=== PATIENT | female | born 1975 | race Two or more races ===

== ENCOUNTER 2017-07-12 19:41 | Inpatient (IN) | payer MEDICAID ==
--- NOTE | 2017-07-12 20:01 | ED Physician Chart ---
ED Chief Complaint/HPI - Patient Information Date Seen:: 07/12/17 Time Seen:: 19:45 Chief Complaint:: abdominal discomfort History of Present Illness:: location: abdomen quality: abdominal discomfort severity: moderate duration: about 3 days. pt with severe mental retardation from , blindness , livese at assisted. RN who is caregiver reports pt with occasional cough, increasing abdominal distension, large bolus type very foul smelling stools, no vomiting, no fever, pt cannot report if she is having chest pain. pt is seen to have some facial grimacing. care provder says some of this is normal. reason for coming to ER is above complaints have not improved in last 3 days and pt cannot communicate discomfort to providers. mod factors: none assoc s/s: none hx from care provider Historian:: Other (care provider) Review:: Nurse's Note Reviewed ED Review of Systems - Review of Systems General/Constitutional: No fever, No loss of appetite (pt is still taking PO's today. no vomiting today but abdomen is becoming increasingly more distended ) Skin: No rash ENT: No nasal drainage Neck: No stiffness Cardio Vascular: No edema Pulmonary: Cough (occasional cough non productive) GI: No vomiting, No diarrhea G/U: No hematuria Marble Machine Operator: No vaginal discharge Allergic/Immuno: No angioedema Neurological: No seizure (ROS from care provider) ED Past Medical History - Past Medical History Past Medical History: Other (severe mental retardation, ) Family History: None Social History: Non Smoker, No Alcohol, No Drug Use, Single, Care Facility Surgical History: other (back surgery for scoliosis) Psychiatricy History: Other (anxiety) Medication: Reviewed Family Medical History - Family Member Mother History Unknown: Yes ED Physical Exam - Physical Examination General/Constitutional: Awake, Well-developed, well-nourished, Alert (pt is alert but has facial grimace and turns head to left and right. care provider says that some of this is WNL but thinks it is more increased iin last 3 days and with increasing abdominal distension wonders of underlying disease. pt has been with this care provider for 10 years. ) Head: Atraumatic Eyes: Lids, conjuctiva normal, PERRL, EOMI Skin: Nl inspection, No rash, No skin lesions, No ecchymosis, Well hydrated, No lymphadenopathy ENMT: External ears, nose nl Neck: Nontender Respiratory: Nl effort/Exclusion (upper lung benson clear,lower lung benson with scant crackles bilaterally) Cardio Vascular: RRR, No murmur, gallop, rubs, NL S1 S2 GI: No tenderness/rebounding/guarding (abdominal fullness with mildly hypoactive bowel sounds all quadrants. no rebound, difficult to determine tenderness as patient is not responsive to typical stimuli. pt is with facial grimace during exam. ) : No CVA tenderness Extremities: No tenderness or effusion, normal strength in all extremities ( some contractures all limbs) Neuro/Psych: Alert/oriented (pt appears awake, but eyes are closed. pt is blind since ) Misc: Normal back (scoliosis of spine) ED Labs/Radiology/EKG Results - Lab Results Results: Laboratory Tests 07/12/17 07/12/17 07/12/17 20:28 20:28 20:35 WBC 9.2 RBC 4.62 Hgb 14.1 Hct 41.4 MCV 89.7 MCH 30.5 MCHC Differential 33.9 RDW 11.9 Plt Count 308 MPV 7.7 Neutrophils % 65.8 Lymphocytes % 20.8 Monocytes % 10.9 H Eosinophils % 2.2 Basophils % 0.3 Sodium 135 L Potassium 3.5 Chloride 104 Carbon Dioxide 23.2 Anion Gap 11.3 BUN 7 Creatinine 0.9 Est GFR ( Amer) > 60.0 Est GFR (Non-Af Amer) > 60.0 BUN/Creatinine Ratio 7.8 Glucose 126 H Calcium 9.4 Total Bilirubin 0.5 AST 15 ALT 17 Alkaline Phosphatase 93 Total Protein 6.7 Albumin 4.2 Globulin 2.5 Albumin/Globulin Ratio 1.7 Urine Source CLEAN C Urine Color YELLOW Urine Clarity SLIGHTLY HAZY Urine pH 6.0 Ur Specific [place] <= 1.005 Urine Protein NEGATIVE Urine Glucose (UA) NEGATIVE Urine Ketones NEGATIVE Urine Blood TRACE Urine Nitrate NEGATIVE Urine Bilirubin NEGATIVE Urine Urobilinogen 0.2 Ur Leukocyte Esterase NEGATIVE Urine RBC 0-2 Urine WBC 0-2 Ur Epithelial Cells MODERATE Urine Bacteria 1+ H Urine Test 07/12/17 20:35 WBC RBC Hgb Hct MCV MCH MCHC Differential RDW Plt Count MPV Neutrophils % Lymphocytes % Monocytes % Eosinophils % Basophils % Sodium Potassium Chloride Carbon Dioxide Anion Gap BUN Creatinine Est GFR ( Amer) Est GFR (Non-Af Amer) BUN/Creatinine Ratio Glucose Calcium Total Bilirubin AST ALT Alkaline Phosphatase Total Protein Albumin Globulin Albumin/Globulin Ratio Urine Source Urine Color Urine Clarity Urine pH Ur Specific [place] Urine Protein Urine Glucose (UA) Urine Ketones Urine Blood Urine Nitrate Urine Bilirubin Urine Urobilinogen Ur Leukocyte Esterase Urine RBC Urine WBC Ur Epithelial Cells Urine Bacteria Urine Test NEGATIVE - Radiology Results Results: CT abdomen and pelvis multiple severely gas distended bowel loops, mild narrowing of sigmoid colon, sibmoid colonic wall thickening obstruction vs ileus no free air severe scoliosis distended urinary bladder RAD READ ED Assessment - Assessment General Assessment: medical decision making pt with severe mental retardation and blindness some flexion contractures care provider has done well to bring patient to ER at this time prior to vital sign changes. at this time CBC and CMP do not show any acute abnormalities, however, CT shows findings consistent with bowel obstruction in progress versus severe ileus. recommend pt to have bowel rest, IV fluid hydration and admission for possible obstruction, colitis. case discusssed with Dr. Kemp who advises admission. ED Septic Shock - . Is Septic Shock (SBP<90, OR Lactate>4 mmol\L) present?: No ED Reassessment (Disposition) - Reassessment Reassessment:: pt stable in ER. Reassessment Condition:: Unchanged - Diagnosis Diagnosis:: abdominal pain, distension due to bowel obstruction vs severe ileus - Patient Disposition Discharge/Transfer:: Acute Care w/in this hosp Admitting Medical Physician:: Ti Kemp Time:: 21:30 Condition at Disposition:: Stable, Improved
[2017-07-12 20:35] LABS: % BASOPHILS 0.3 % (0.0-2.0); % EOSINOPHILS 2.2 % (0.0-5.0); % LYMPHOCYTES 20.8 % (20.0-50.0); % MONOCYTES 10.9 % (2.0-10.0); % NEUTROPHILS 65.8 % (40.0-80.0); HEMATOCRIT 41.4 % (41.0-60); HEMOGLOBIN 14.1 gm/dL (12-16); MEAN CELL VOLUME 89.7 fl (81-100); MEAN CORPUSCULAR HEMOGLOBIN 30.5 pg (27.0-31.0); MEAN CORPUSCULAR HGB CONC 33.9 pg (28.0-36.0); MEAN PLATELET VOLUME 7.7 fl; NEUTROPHILE ABSOLUTE 6.1 Th/cmm (1.8-8.0); PLATELET COUNT 308 Th/cmm (150-400); RED BLOOD COUNT 4.62 Mil/cmm (3.80-5.10); RED CELL DISTRIBUTION WIDTH 11.9 % (11.5-20.0); WHITE BLOOD COUNT 9.2 Th/cmm (4.8-10.8)
[2017-07-12 20:51] LABS: ALB/GLOB RATIO 1.7 (1.0-1.8); ALKALINE PHOSPHATASE 93 U/L (34-104); ANION GAP 11.3 (7.0-16.0); BILIRUBIN,TOTAL 0.5 mg/dL (0.3-1.0); BUN - UREA NITROGEN 7 mg/dL (7-25); BUN/CREATININE RATIO 7.8; CALCIUM SERUM 9.4 mg/dL (8.6-10.3); CARBON DIOXIDE 23.2 mEq/L (21.0-31.0); CHLORIDE 104 mEq/L (98-107); CREATININE - SERUM 0.9 mg/dL (0.6-1.2); GLUCOSE 126 mg/dL (70-105); POTASSIUM SERUM 3.5 mEq/L (3.5-5.1); SGOT 15 U/L (13-39); SGPT/ALT 17 U/L (7-52); SODIUM SERUM 135 mEq/L (136-145)
[2017-07-12 21:04] LABS: URINE BILIRUBIN NEGATIVE (NEGATIVE); URINE BLOOD TRACE (NEGATIVE); URINE GLUCOSE (UA) NEGATIVE (NEGATIVE); URINE KETONE NEGATIVE (NEGATIVE); URINE PROTEIN NEGATIVE (NEGATIVE); URINE UROBILINOGEN 0.2 E.U./dL (0.2 - 1.0)
[2017-07-12 21:12] LABS: URINE BACTERIA 1+ /hpf (NONE SEEN); URINE COLOR YELLOW; URINE EPITHELIAL CELLS MODERATE /lpf (FEW); URINE RBC 0-2 /hpf (0-5); URINE WBC 0-2 /hpf (0-5)
[2017-07-12] MEDS ORDERED: Sodium Chloride 0.9% 1,000 ML IV SCH (21:30)
[2017-07-12] MEDS ORDERED: D5-0.45NS 1,000 ML IV SCH (23:28)
[2017-07-13 03:26] VITALS: BP 133/82
[2017-07-13 06:30] LABS: % BASOPHILS 0.3 % (0.0-2.0); % EOSINOPHILS 3.5 % (0.0-5.0); % MONOCYTES 14.2 % (2.0-10.0); HEMATOCRIT 38.8 % (41.0-60); HEMOGLOBIN 13.2 gm/dL (12-16); MEAN CELL VOLUME 89.1 fl (81-100); MEAN CORPUSCULAR HEMOGLOBIN 30.3 pg (27.0-31.0); MEAN PLATELET VOLUME 7.7 fl; NEUTROPHILE ABSOLUTE 2.7 Th/cmm (1.8-8.0); PLATELET COUNT 270 Th/cmm (150-400); RED BLOOD COUNT 4.35 Mil/cmm (3.80-5.10); RED CELL DISTRIBUTION WIDTH 12.2 % (11.5-20.0); WHITE BLOOD COUNT 6.6 Th/cmm (4.8-10.8)
[2017-07-13 06:45] LABS: ALB/GLOB RATIO 1.7 (1.0-1.8); ALKALINE PHOSPHATASE 84 U/L (34-104); ANION GAP 9.4 (7.0-16.0); BILIRUBIN,TOTAL 0.5 mg/dL (0.3-1.0); BUN - UREA NITROGEN 5 mg/dL (7-25); BUN/CREATININE RATIO 6.3; CALCIUM SERUM 8.9 mg/dL (8.6-10.3); CARBON DIOXIDE 24.4 mEq/L (21.0-31.0); CHLORIDE 109 mEq/L (98-107); CREATININE - SERUM 0.8 mg/dL (0.6-1.2); GLUCOSE 119 mg/dL (70-105); POTASSIUM SERUM 3.8 mEq/L (3.5-5.1); SGOT 15 U/L (13-39); SGPT/ALT 15 U/L (7-52); SODIUM SERUM 139 mEq/L (136-145)
--- NOTE | 2017-07-13 08:11 | Diagnostic Imaging Report ---
CT scan abdomen and pelvis without intravenous contrast HISTORY: Abdominal distention Total DLP equals 448 CTDI equals 9.0 Axial sections were obtained from the xiphoid process down to the pubic symphysis. Exam is somewhat compromised due to artifact associated with headaches renay placement. Severe scoliosis of the thoracolumbar spine convexity to the left. No obvious focal lesions seen within the liver or spleen. No definite abnormality seen in the region of the pancreas. No definite focal renal lesions. Mild generalized dilatation with air-filled large and small bowel. Changes probably related to an adynamic ileus. Obstruction cannot be excluded. Clinical correlation is needed. Haziness noted in the region of the mesentery of questionable significance. There is a distended urinary bladder. No other definite abnormal masses or fluid collections seen within the pelvis. IMPRESSION: 1. Limited exam due to artifact associated with Andre renay placement. 2. Severe scoliosis 3. Moderately distended air-filled large and small bowel. Findings may be associated with an a dynamic ileus. However, clinical correlation is needed.
--- NOTE | 2017-07-13 08:14 | Diagnostic Imaging Report ---
Portable chest x-ray HISTORY: Cough There is a very poor inspiration. Heart size difficult to assess. No definite focal pulmonary processes. No hilar or mediastinal abnormalities. Scoliosis and Park renay placement noted. Distended air-filled bowel noted below the diaphragm. IMPRESSION: 1. No acute focal pulmonary processes 2. Somewhat distended air-filled large bowel beneath the diaphragm
--- NOTE | 2017-07-13 08:38 | History and Physical ---
History of Present Illness - HPI Chief Complaint: abdominal discomfort HPI: 42 year old female who presents to [facility] ER with complaints for severe abdominal discomfort fort he past 3 days. Patient has a history of mental retardation, blindness and is currently living at an SNF. The nursing staff noted increased abdominal distention. She was subsequently sent to the ER for further evaluation. While in the ER a CT scan abd revealed distended loops of bowel consistent with bowel obstruction vs ileus. Patient was subsequently admitted for evaluation. WBC 9.2 H/H 14.1/41.4 BUN/Cr 7/0.9 K 3.5 Vital Signs: Last Vital Signs Temp 98.4 F 07/12/17 22:53 Pulse 104 07/12/17 22:53 Resp 17 07/12/17 22:53 BP 133/82 07/13/17 03:26 Pulse Ox 98 07/12/17 22:53 Past Medical History Cardiovascular: Report: No Pertinent Hx Pulmonary: Report: No Pertinent Hx HOME AIDE: Report: Other (severe mental retardation) GI: Report: No Pertinent Hx Psych: Report: No Pertinent Hx Musculoskeletal: Report: No Pertinent Hx Rheumatologic: Report: No pertinent Hx Infectious Disease: Report: No Pertinent Hx Renal/: Report: No Pertinent Hx Endocrine: Report: No Pertinent Hx Dermatology: Report: No Pertinent Hx - Past Surgical History Past Surgical History: No pertinent Hx Family Medical History - Family Member Mother History Unknown: Yes Social History Smoke: No Alcohol: None Drugs: None Lives: Alone - Medications Home Medications: Home Medication Medication Instructions Recorded Type Benztropine [Cogentin*] 1 mg PO HS 07/12/17 History Clonazepam [Klonopin] 2 mg PO HS 07/12/17 History Docusate Sodium [Colace] 250 mg PO BID 07/12/17 History Olanzapine [Zyprexa] 20 mg PO HS 07/12/17 History Paliperidone [Invega] 9 mg PO HS 07/12/17 History Ziprasidone HCl [Geodon] 80 mg PO BID 07/12/17 History - Allergies Allergies/Adverse Reactions: Allergies Allergy/AdvReac Type Severity Reaction Status Date / Time No Known Allergies Allergy Verified 07/12/17 20:14 Review of Systems - Review of Systems Constitutional: Report: No Significant Eyes: Report: No Significant ENT: Report: No Significant Respiratory: Report: No Significant Cardiovascular: Report: No Significant Gastrointestinal: Report: No Significant Genitourinary: Report: No Significant Musculoskeletal: Report: No Significant Skin: Report: No Significant Neurological: Report: No Significant Physical Exam - Physical Exam Neck: Report: Within normal limits Cardiovascular Systems: Report: +s1/s2 noted, Regular, Rate and Rhythm Respiratory: Report: Breath Sounds are within normal limits, Clear to Auscultation of lung benson Abdomen: Report: Abnormal Bowel Sounds (abd distention w/ decreased bowel sounds ) - Lab Results All Lab Results last 24 hours: Laboratory Last Values WBC 6.6 Th/cmm (4.8-10.8) D 07/13/17 06:20 RBC 4.35 Mil/cmm (3.80-5.10) 07/13/17 06:20 Hgb 13.2 gm/dL (12-16) 07/13/17 06:20 Hct 38.8 % (41.0-60) L 07/13/17 06:20 MCV 89.1 fl (81-100) 07/13/17 06:20 MCH 30.3 pg (27.0-31.0) 07/13/17 06:20 MCHC Differential 34.0 pg (28.0-36.0) 07/13/17 06:20 RDW 12.2 % (11.5-20.0) 07/13/17 06:20 Plt Count 270 Th/cmm (150-400) 07/13/17 06:20 MPV 7.7 fl 07/13/17 06:20 Neutrophils % 41.0 % (40.0-80.0) 07/13/17 06:20 Lymphocytes % 41.0 % (20.0-50.0) 07/13/17 06:20 Monocytes % 14.2 % (2.0-10.0) H 07/13/17 06:20 Eosinophils % 3.5 % (0.0-5.0) 07/13/17 06:20 Basophils % 0.3 % (0.0-2.0) 07/13/17 06:20 Sodium 139 mEq/L (136-145) 07/13/17 06:20 Potassium 3.8 mEq/L (3.5-5.1) 07/13/17 06:20 Chloride 109 mEq/L (98-107) H 07/13/17 06:20 Carbon Dioxide 24.4 mEq/L (21.0-31.0) 07/13/17 06:20 Anion Gap 9.4 (7.0-16.0) 07/13/17 06:20 BUN 5 mg/dL (7-25) L 07/13/17 06:20 Creatinine 0.8 mg/dL (0.6-1.2) 07/13/17 06:20 Est GFR ( Amer) > 60.0 ml/min (>90) 07/13/17 06:20 Est GFR (Non-Af Amer) > 60.0 ml/min 07/13/17 06:20 BUN/Creatinine Ratio 6.3 07/13/17 06:20 Glucose 119 mg/dL (70-105) H 07/13/17 06:20 Calcium 8.9 mg/dL (8.6-10.3) 07/13/17 06:20 Total Bilirubin 0.5 mg/dL (0.3-1.0) 07/13/17 06:20 AST 15 U/L (13-39) 07/13/17 06:20 ALT 15 U/L (7-52) 07/13/17 06:20 Alkaline Phosphatase 84 U/L (34-104) 07/13/17 06:20 Total Protein 6.0 gm/dL (6.0-8.3) 07/13/17 06:20 Albumin 3.8 gm/dL (3.7-5.3) 07/13/17 06:20 Globulin 2.2 gm/dL 07/13/17 06:20 Albumin/Globulin Ratio 1.7 (1.0-1.8) 07/13/17 06:20 Urine Source CLEAN C 07/12/17 20:35 Urine Color YELLOW 07/12/17 20:35 Urine Clarity SLIGHTLY HAZY (CLEAR) 07/12/17 20:35 Urine pH 6.0 (4.6 - 8.0) 07/12/17 20:35 Ur Specific [place] <= 1.005 (1.005-1.030) 07/12/17 20:35 Urine Protein NEGATIVE mg/dL (NEGATIVE) 07/12/17 20:35 Urine Glucose (UA) NEGATIVE mg/dL (NEGATIVE) 07/12/17 20:35 Urine Ketones NEGATIVE mg/dL (NEGATIVE) 07/12/17 20:35 Urine Blood TRACE (NEGATIVE) 07/12/17 20:35 Urine Nitrate NEGATIVE (NEGATIVE) 07/12/17 20:35 Urine Bilirubin NEGATIVE (NEGATIVE) 07/12/17 20:35 Urine Urobilinogen 0.2 E.U./dL (0.2 - 1.0) 07/12/17 20:35 Ur Leukocyte Esterase NEGATIVE (NEGATIVE) 07/12/17 20:35 Urine RBC 0-2 /hpf (0-5) 07/12/17 20:35 Urine WBC 0-2 /hpf (0-5) 07/12/17 20:35 Ur Epithelial Cells MODERATE /lpf (FEW) 07/12/17 20:35 Urine Bacteria 1+ /hpf (NONE SEEN) H 07/12/17 20:35 Urine Test NEGATIVE 07/12/17 20:35 Laboratory Results - last 24 hr 07/13/17 07/13/17 06:20 06:20 WBC 6.6 D RBC 4.35 Hgb 13.2 Hct 38.8 L MCV 89.1 MCH 30.3 MCHC Differential 34.0 RDW 12.2 Plt Count 270 MPV 7.7 Neutrophils % 41.0 Lymphocytes % 41.0 Monocytes % 14.2 H Eosinophils % 3.5 Basophils % 0.3 Sodium 139 Potassium 3.8 Chloride 109 H Carbon Dioxide 24.4 Anion Gap 9.4 BUN 5 L Creatinine 0.8 Est GFR ( Amer) > 60.0 Est GFR (Non-Af Amer) > 60.0 BUN/Creatinine Ratio 6.3 Glucose 119 H Calcium 8.9 Total Bilirubin 0.5 AST 15 ALT 15 Alkaline Phosphatase 84 Total Protein 6.0 Albumin 3.8 Globulin 2.2 Albumin/Globulin Ratio 1.7 - Assessment Assessment: severe mental retardation SBO vs ileus abdominal pain distended urinary bladder severe scoliosis - Plan Plan: NPO IV fluids GI consult surgical consult KUB repeat labwork
--- NOTE | 2017-07-13 08:40 | Diagnostic Imaging Report ---
KUB abdominal film HISTORY: Pain The exam demonstrates no mildly dilated loops of air filled large and small bowel. The overall appearance suggests changes associated with an adynamic ileus. However, clinical relation is needed. There is a severe scoliosis of the thoracolumbar spine convex left. Park renay placement. IMPRESSION: 1. Mildly dilated large and small bowel suggesting changes of an adynamic ileus. Clinical correlation needed.
--- NOTE | 2017-07-13 13:47 | General Progress Note ---
Subjective - Review of Systems Service Date: 07/13/17 Events since last encounter: chart reviewed patient examined - abdomen not distended now but KUB shows dilated SB, had BM will order SBO series Objective - Results Result Diagrams: 07/13/17 06:20 07/13/17 06:20 Recent Labs: Laboratory Last Values WBC 6.6 Th/cmm (4.8-10.8) D 07/13/17 06:20 RBC 4.35 Mil/cmm (3.80-5.10) 07/13/17 06:20 Hgb 13.2 gm/dL (12-16) 07/13/17 06:20 Hct 38.8 % (41.0-60) L 07/13/17 06:20 MCV 89.1 fl (81-100) 07/13/17 06:20 MCH 30.3 pg (27.0-31.0) 07/13/17 06:20 MCHC Differential 34.0 pg (28.0-36.0) 07/13/17 06:20 RDW 12.2 % (11.5-20.0) 07/13/17 06:20 Plt Count 270 Th/cmm (150-400) 07/13/17 06:20 MPV 7.7 fl 07/13/17 06:20 Neutrophils % 41.0 % (40.0-80.0) 07/13/17 06:20 Lymphocytes % 41.0 % (20.0-50.0) 07/13/17 06:20 Monocytes % 14.2 % (2.0-10.0) H 07/13/17 06:20 Eosinophils % 3.5 % (0.0-5.0) 07/13/17 06:20 Basophils % 0.3 % (0.0-2.0) 07/13/17 06:20 Sodium 139 mEq/L (136-145) 07/13/17 06:20 Potassium 3.8 mEq/L (3.5-5.1) 07/13/17 06:20 Chloride 109 mEq/L (98-107) H 07/13/17 06:20 Carbon Dioxide 24.4 mEq/L (21.0-31.0) 07/13/17 06:20 Anion Gap 9.4 (7.0-16.0) 07/13/17 06:20 BUN 5 mg/dL (7-25) L 07/13/17 06:20 Creatinine 0.8 mg/dL (0.6-1.2) 07/13/17 06:20 Est GFR ( Amer) > 60.0 ml/min (>90) 07/13/17 06:20 Est GFR (Non-Af Amer) > 60.0 ml/min 07/13/17 06:20 BUN/Creatinine Ratio 6.3 07/13/17 06:20 Glucose 119 mg/dL (70-105) H 07/13/17 06:20 Calcium 8.9 mg/dL (8.6-10.3) 07/13/17 06:20 Total Bilirubin 0.5 mg/dL (0.3-1.0) 07/13/17 06:20 AST 15 U/L (13-39) 07/13/17 06:20 ALT 15 U/L (7-52) 07/13/17 06:20 Alkaline Phosphatase 84 U/L (34-104) 07/13/17 06:20 Total Protein 6.0 gm/dL (6.0-8.3) 07/13/17 06:20 Albumin 3.8 gm/dL (3.7-5.3) 07/13/17 06:20 Globulin 2.2 gm/dL 07/13/17 06:20 Albumin/Globulin Ratio 1.7 (1.0-1.8) 07/13/17 06:20 Urine Source CLEAN C 07/12/17 20:35 Urine Color YELLOW 07/12/17 20:35 Urine Clarity SLIGHTLY HAZY (CLEAR) 07/12/17 20:35 Urine pH 6.0 (4.6 - 8.0) 07/12/17 20:35 Ur Specific [place] <= 1.005 (1.005-1.030) 07/12/17 20:35 Urine Protein NEGATIVE mg/dL (NEGATIVE) 07/12/17 20:35 Urine Glucose (UA) NEGATIVE mg/dL (NEGATIVE) 07/12/17 20:35 Urine Ketones NEGATIVE mg/dL (NEGATIVE) 07/12/17 20:35 Urine Blood TRACE (NEGATIVE) 07/12/17 20:35 Urine Nitrate NEGATIVE (NEGATIVE) 07/12/17 20:35 Urine Bilirubin NEGATIVE (NEGATIVE) 07/12/17 20:35 Urine Urobilinogen 0.2 E.U./dL (0.2 - 1.0) 07/12/17 20:35 Ur Leukocyte Esterase NEGATIVE (NEGATIVE) 07/12/17 20:35 Urine RBC 0-2 /hpf (0-5) 07/12/17 20:35 Urine WBC 0-2 /hpf (0-5) 07/12/17 20:35 Ur Epithelial Cells MODERATE /lpf (FEW) 07/12/17 20:35 Urine Bacteria 1+ /hpf (NONE SEEN) H 07/12/17 20:35 Urine Test NEGATIVE 07/12/17 20:35 - Physical Exam Vitals and I&O: Vital Signs Temp 98.4 F 07/13/17 13:42 Pulse 92 07/13/17 13:42 Resp 18 07/13/17 13:42 BP 130/94 07/13/17 13:42 Pulse Ox 98 07/13/17 13:42 Intake & Output 07/12/17 07/13/17 07/13/17 18:59 06:59 18:59 Intake Total 1000 Balance 1000 Weight (lbs) 47.627 kg Intake: Intake, IV Amount 1000 Sodium Chloride 0.9% 1, 1000 000 ml @ Wide Open IV . Q0M [facility] Rx#:[id number] Other: # Bowel Movements 1 Active Medications: Current Medications Benztropine Mesylate (Cogentin) 1 mg PO HS PREET Stop: 09/11/17 20:59 Clonazepam (Klonopin) 2 mg PO HS PREET Stop: 09/11/17 20:59 Docusate Sodium (Colace) 250 mg PO BID PREET Stop: 09/11/17 08:59 Last Admin: 07/13/17 09:25 Dose: Not Given Potassium Chloride 10 meq/ (Sodium Chloride) 1,005 mls @ 100 mls/hr IV .Q10H3M PREET Stop: 09/11/17 08:44 Last Admin: 07/13/17 09:25 Dose: 100 mls/hr Influenza Virus Vaccine (Fluarix) 0.5 ml IM .ONCE ONE Stop: 07/16/17 09:01 Miscellaneous (Paliperidone [Invega]) 9 mg PO HS PREET Stop: 09/11/17 20:59 Olanzapine (Zyprexa) 20 mg PO HS PREET PRN Reason: Protocol Stop: 09/11/17 20:59 Ziprasidone (Geodon) 80 mg PO BID PREET Stop: 09/11/17 08:59
[2017-07-13] MEDS ORDERED: Diatrizoate Meglumine/Diatri 30 mL Sol PO ONE (13:59)
--- NOTE | 2017-07-13 19:27 | Consultation ---
DATE OF CONSULTATION: 07/13/2017 REQUESTING PHYSICIAN: Ti Kemp M.D. REASON FOR CONSULTATION: Abdominal pain. HISTORY OF PRESENT ILLNESS: This is a 42-year-old female who is a alf resident and has blindness with mental retardation. She is essentially bedbound. We were asked to evaluate the patient for severe abdominal discomfort and distention for the past [address] here showed distended loops of small and large bowel consistent with a bowel obstruction versus ileus. KUB was unremarkable. Small bowel series is pending. PAST MEDICAL HISTORY: As above. MEDICATIONS: Cogentin, Klonopin, Colace, influenza shot, Zyprexa, IV fluids with the potassium and Geodon. ALLERGIES: None. SOCIAL HISTORY: group home resident. No known tobacco, alcohol, or drugs. FAMILY HISTORY: Noncontributory. REVIEW OF SYSTEMS: Negative. PHYSICAL EXAMINATION: VITAL SIGNS: Temperature of 98.4, blood pressure 130/94, pulse of 92, respirations 18, and O2 sats 98% on room air. GENERAL: The patient is well-developed thin female in no acute distress. 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 CARDIOVASCULAR: Regular rate and rhythm. LUNGS: Clear to auscultation bilaterally. ABDOMEN: Soft, nontender, and nondistended. EXTREMITIES: No clubbing, cyanosis, or edema. RECTAL: Deferred. LABORATORY DATA AND IMAGING: WBC 6.6, hemoglobin 13.2, and platelet count is 270,000. Sodium 139, creatinine is normal. Liver enzymes normal. Urinalysis is essentially clear. IMPRESSION: 1. Abdominal pain secondary to ileus and/or constipation, less likely colitis. 2. Mental retardation. 3. Blindness. RECOMMENDATIONS: 1. Stool softeners. 2. Await small bowel follow through results. If negative, then consider advancing diet. Oral diet as tolerated. 3. No need for endoscopic workup at this point. Thank you, Dr. Ti Kemp, for involving us in the care of this patient. If you have any further questions, please call us. JOB# [id number]
[2017-07-13] MEDS ORDERED: PALIPERIDONE 9 MG PO SCH (21:00)
[2017-07-13] MEDS ORDERED: Benztropine 1 MG TAB PO SCH (21:00)
[2017-07-14 05:56] LABS: % BASOPHILS 2.7 % (0.0-2.0); % LYMPHOCYTES 14.1 % (20.0-50.0); % MONOCYTES 9.8 % (2.0-10.0); % NEUTROPHILS 72.4 % (40.0-80.0); HEMATOCRIT 40.9 % (41.0-60); HEMOGLOBIN 13.9 gm/dL (12-16); MEAN CELL VOLUME 87.5 fl (81-100); MEAN CORPUSCULAR HEMOGLOBIN 29.7 pg (27.0-31.0); MEAN PLATELET VOLUME 8.6 fl; NEUTROPHILE ABSOLUTE 6.7 Th/cmm (1.8-8.0); RED BLOOD COUNT 4.68 Mil/cmm (3.80-5.10); RED CELL DISTRIBUTION WIDTH 12.2 % (11.5-20.0)
[2017-07-14 06:04] LABS: PLATELET COUNT 329 Th/cmm (150-400); WHITE BLOOD COUNT 9.2 Th/cmm (4.8-10.8)
[2017-07-14 06:21] LABS: ALB/GLOB RATIO 1.7 (1.0-1.8); ALKALINE PHOSPHATASE 90 U/L (34-104); ANION GAP 14.1 (7.0-16.0); BILIRUBIN,TOTAL 0.6 mg/dL (0.3-1.0); BUN - UREA NITROGEN 9 mg/dL (7-25); BUN/CREATININE RATIO 12.9; CALCIUM SERUM 9.2 mg/dL (8.6-10.3); CARBON DIOXIDE 20.1 mEq/L (21.0-31.0); CHLORIDE 105 mEq/L (98-107); CREATININE - SERUM 0.7 mg/dL (0.6-1.2); GLUCOSE 121 mg/dL (70-105); POTASSIUM SERUM 4.2 mEq/L (3.5-5.1); SGOT 17 U/L (13-39); SGPT/ALT 18 U/L (7-52); SODIUM SERUM 135 mEq/L (136-145)
--- NOTE | 2017-07-14 08:08 | Diagnostic Imaging Report ---
Small bowel follow-through procedure History: Pain, rule out small bowel obstruction comparison: KUB on 07/13/[address] abdomen and pelvis on 07/12/2017 Technique/procedure: Powerhouse Mechanic view demonstrates diffuse distended loops of bowel. Severe scoliosis is noted with spinal scoliosis fixation hardware. Oral contrast was administered and fluoroscopic images were obtained. Evaluation for focal lesions is limited on this exam. There is delayed but eventual passage of contrast seen into the large bowel at 8 1/2 hours. Moderate stool is also noted. IMPRESSION: Diffuse distended loops of bowel including small and large bowel loops. There is delayed but eventual passage of oral contrast to the large bowel at 8 1/2 hours. When compared to previous exams findings may be due to a severe ileus. A partial small bowel obstructive process is considered less likely, however, clinical correlation and follow-up is recommended.
--- NOTE | 2017-07-14 08:28 | General Progress Note ---
Subjective - Review of Systems Service Date: 07/14/17 Subjective: Patient is resting in bed. Awake, alert, afebrile. small bowel series done yesterday. Patient NPO on IV fluids. Objective - Results Result Diagrams: 07/14/17 05:20 07/14/17 05:20 Recent Labs: Laboratory Last Values WBC 9.2 Th/cmm (4.8-10.8) D 07/14/17 05:20 RBC 4.68 Mil/cmm (3.80-5.10) 07/14/17 05:20 Hgb 13.9 gm/dL (12-16) 07/14/17 05:20 Hct 40.9 % (41.0-60) L 07/14/17 05:20 MCV 87.5 fl (81-100) 07/14/17 05:20 MCH 29.7 pg (27.0-31.0) 07/14/17 05:20 MCHC Differential 34.0 pg (28.0-36.0) 07/14/17 05:20 RDW 12.2 % (11.5-20.0) 07/14/17 05:20 Plt Count 329 Th/cmm (150-400) D 07/14/17 05:20 MPV 8.6 fl 07/14/17 05:20 Neutrophils % 72.4 % (40.0-80.0) 07/14/17 05:20 Lymphocytes % 14.1 % (20.0-50.0) L 07/14/17 05:20 Monocytes % 9.8 % (2.0-10.0) 07/14/17 05:20 Eosinophils % 1.0 % (0.0-5.0) 07/14/17 05:20 Basophils % 2.7 % (0.0-2.0) H 07/14/17 05:20 Sodium 135 mEq/L (136-145) L 07/14/17 05:20 Potassium 4.2 mEq/L (3.5-5.1) 07/14/17 05:20 Chloride 105 mEq/L (98-107) 07/14/17 05:20 Carbon Dioxide 20.1 mEq/L (21.0-31.0) L 07/14/17 05:20 Anion Gap 14.1 (7.0-16.0) 07/14/17 05:20 BUN 9 mg/dL (7-25) 07/14/17 05:20 Creatinine 0.7 mg/dL (0.6-1.2) 07/14/17 05:20 Est GFR ( Amer) > 60.0 ml/min (>90) 07/14/17 05:20 Est GFR (Non-Af Amer) > 60.0 ml/min 07/14/17 05:20 BUN/Creatinine Ratio 12.9 07/14/17 05:20 Glucose 121 mg/dL (70-105) H 07/14/17 05:20 Calcium 9.2 mg/dL (8.6-10.3) 07/14/17 05:20 Total Bilirubin 0.6 mg/dL (0.3-1.0) 07/14/17 05:20 AST 17 U/L (13-39) 07/14/17 05:20 ALT 18 U/L (7-52) 07/14/17 05:20 Alkaline Phosphatase 90 U/L (34-104) 07/14/17 05:20 Total Protein 6.7 gm/dL (6.0-8.3) 07/14/17 05:20 Albumin 4.2 gm/dL (3.7-5.3) 07/14/17 05:20 Globulin 2.5 gm/dL 07/14/17 05:20 Albumin/Globulin Ratio 1.7 (1.0-1.8) 07/14/17 05:20 Urine Source CLEAN C 07/12/17 20:35 Urine Color YELLOW 07/12/17 20:35 Urine Clarity SLIGHTLY HAZY (CLEAR) 07/12/17 20:35 Urine pH 6.0 (4.6 - 8.0) 07/12/17 20:35 Ur Specific [place] <= 1.005 (1.005-1.030) 07/12/17 20:35 Urine Protein NEGATIVE mg/dL (NEGATIVE) 07/12/17 20:35 Urine Glucose (UA) NEGATIVE mg/dL (NEGATIVE) 07/12/17 20:35 Urine Ketones NEGATIVE mg/dL (NEGATIVE) 07/12/17 20:35 Urine Blood TRACE (NEGATIVE) 07/12/17 20:35 Urine Nitrate NEGATIVE (NEGATIVE) 07/12/17 20:35 Urine Bilirubin NEGATIVE (NEGATIVE) 07/12/17 20:35 Urine Urobilinogen 0.2 E.U./dL (0.2 - 1.0) 07/12/17 20:35 Ur Leukocyte Esterase NEGATIVE (NEGATIVE) 07/12/17 20:35 Urine RBC 0-2 /hpf (0-5) 07/12/17 20:35 Urine WBC 0-2 /hpf (0-5) 07/12/17 20:35 Ur Epithelial Cells MODERATE /lpf (FEW) 07/12/17 20:35 Urine Bacteria 1+ /hpf (NONE SEEN) H 07/12/17 20:35 Urine Test NEGATIVE 07/12/17 20:35 - Physical Exam Vitals and I&O: Vital Signs Temp 98.7 F 07/14/17 08:06 Pulse 109 07/14/17 08:06 Resp 18 07/14/17 08:06 BP 126/78 07/14/17 08:06 Pulse Ox 97 07/14/17 08:06 Intake & Output 07/13/17 07/14/17 07/14/17 18:59 06:59 18:59 Intake Total 1005 Output Total 3 Balance -3 1005 Weight (lbs) 47.627 kg 47.582 kg Intake: Intake, IV Amount 1005 Potassium Chloride 10 meq 1005 In Sodium Chloride 0.45% 1,000 ml @ 100 mls/hr IV .Q10H3M [facility] Rx#: [id number] Output: Urine 3 Other: # Bowel Movements 3 Active Medications: Current Medications Benztropine Mesylate (Cogentin) 1 mg PO HS PREET Stop: 09/11/17 20:59 Last Admin: 07/13/17 20:03 Dose: Not Given Clonazepam (Klonopin) 2 mg PO HS PREET Stop: 09/11/17 20:59 Docusate Sodium (Colace) 250 mg PO BID PREET Stop: 09/11/17 08:59 Last Admin: 07/13/17 16:31 Dose: Not Given Potassium Chloride 10 meq/ (Sodium Chloride) 1,005 mls @ 100 mls/hr IV .Q10H3M PREET Stop: 09/11/17 08:44 Last Admin: 07/14/17 06:31 Dose: Not Given Influenza Virus Vaccine (Fluarix) 0.5 ml IM .ONCE ONE Stop: 07/16/17 09:01 Miscellaneous (Paliperidone [Invega]) 9 mg PO HS PREET Stop: 09/11/17 20:59 Last Admin: 07/13/17 20:04 Dose: Not Given Olanzapine (Zyprexa) 20 mg PO HS PREET PRN Reason: Protocol Stop: 09/11/17 20:59 Ondansetron HCl (Zofran) 4 mg IV Q6H PREET Stop: 09/12/17 05:46 Ziprasidone (Geodon) 80 mg PO BID PREET Stop: 09/11/17 08:59 General: Alert, No acute distress HEENT: Atraumatic, PERRLA Neck: Supple Cardiovascular: Regular rate Lungs: Clear to auscultation Abdomen: Bowel sounds Extremities: no Clubbing, no Cyanosis, no Edema Assessment/Plan - Assessment Assessment: severe mental retardation SBO vs ileus abdominal pain distended urinary bladder severe scoliosis - Plan Plan: NPO IV fluids GI consult surgical consult KUB repeat labwork
[2017-07-14] MEDS ORDERED: Fleet Enema 135 mL RC ONE (12:04)
--- NOTE | 2017-07-14 15:09 | General Progress Note ---
Subjective - Review of Systems Service Date: 07/14/17 Events since last encounter: had BM today for transfer to contracted hospital Objective - Results Result Diagrams: 07/14/17 05:20 07/14/17 05:20 Recent Labs: Laboratory Last Values WBC 9.2 Th/cmm (4.8-10.8) D 07/14/17 05:20 RBC 4.68 Mil/cmm (3.80-5.10) 07/14/17 05:20 Hgb 13.9 gm/dL (12-16) 07/14/17 05:20 Hct 40.9 % (41.0-60) L 07/14/17 05:20 MCV 87.5 fl (81-100) 07/14/17 05:20 MCH 29.7 pg (27.0-31.0) 07/14/17 05:20 MCHC Differential 34.0 pg (28.0-36.0) 07/14/17 05:20 RDW 12.2 % (11.5-20.0) 07/14/17 05:20 Plt Count 329 Th/cmm (150-400) D 07/14/17 05:20 MPV 8.6 fl 07/14/17 05:20 Neutrophils % 72.4 % (40.0-80.0) 07/14/17 05:20 Lymphocytes % 14.1 % (20.0-50.0) L 07/14/17 05:20 Monocytes % 9.8 % (2.0-10.0) 07/14/17 05:20 Eosinophils % 1.0 % (0.0-5.0) 07/14/17 05:20 Basophils % 2.7 % (0.0-2.0) H 07/14/17 05:20 Sodium 135 mEq/L (136-145) L 07/14/17 05:20 Potassium 4.2 mEq/L (3.5-5.1) 07/14/17 05:20 Chloride 105 mEq/L (98-107) 07/14/17 05:20 Carbon Dioxide 20.1 mEq/L (21.0-31.0) L 07/14/17 05:20 Anion Gap 14.1 (7.0-16.0) 07/14/17 05:20 BUN 9 mg/dL (7-25) 07/14/17 05:20 Creatinine 0.7 mg/dL (0.6-1.2) 07/14/17 05:20 Est GFR ( Amer) > 60.0 ml/min (>90) 07/14/17 05:20 Est GFR (Non-Af Amer) > 60.0 ml/min 07/14/17 05:20 BUN/Creatinine Ratio 12.9 07/14/17 05:20 Glucose 121 mg/dL (70-105) H 07/14/17 05:20 Calcium 9.2 mg/dL (8.6-10.3) 07/14/17 05:20 Total Bilirubin 0.6 mg/dL (0.3-1.0) 07/14/17 05:20 AST 17 U/L (13-39) 07/14/17 05:20 ALT 18 U/L (7-52) 07/14/17 05:20 Alkaline Phosphatase 90 U/L (34-104) 07/14/17 05:20 Total Protein 6.7 gm/dL (6.0-8.3) 07/14/17 05:20 Albumin 4.2 gm/dL (3.7-5.3) 07/14/17 05:20 Globulin 2.5 gm/dL 07/14/17 05:20 Albumin/Globulin Ratio 1.7 (1.0-1.8) 07/14/17 05:20 Urine Source CLEAN C 07/12/17 20:35 Urine Color YELLOW 07/12/17 20:35 Urine Clarity SLIGHTLY HAZY (CLEAR) 07/12/17 20:35 Urine pH 6.0 (4.6 - 8.0) 07/12/17 20:35 Ur Specific [place] <= 1.005 (1.005-1.030) 07/12/17 20:35 Urine Protein NEGATIVE mg/dL (NEGATIVE) 07/12/17 20:35 Urine Glucose (UA) NEGATIVE mg/dL (NEGATIVE) 07/12/17 20:35 Urine Ketones NEGATIVE mg/dL (NEGATIVE) 07/12/17 20:35 Urine Blood TRACE (NEGATIVE) 07/12/17 20:35 Urine Nitrate NEGATIVE (NEGATIVE) 07/12/17 20:35 Urine Bilirubin NEGATIVE (NEGATIVE) 07/12/17 20:35 Urine Urobilinogen 0.2 E.U./dL (0.2 - 1.0) 07/12/17 20:35 Ur Leukocyte Esterase NEGATIVE (NEGATIVE) 07/12/17 20:35 Urine RBC 0-2 /hpf (0-5) 07/12/17 20:35 Urine WBC 0-2 /hpf (0-5) 07/12/17 20:35 Ur Epithelial Cells MODERATE /lpf (FEW) 07/12/17 20:35 Urine Bacteria 1+ /hpf (NONE SEEN) H 07/12/17 20:35 Urine Test NEGATIVE 07/12/17 20:35 - Physical Exam Vitals and I&O: Vital Signs Temp 98.8 F 07/14/17 14:15 Pulse 121 07/14/17 14:15 Resp 17 07/14/17 14:15 BP 128/84 07/14/17 11:49 Pulse Ox 97 07/14/17 14:15 Intake & Output 07/13/17 07/14/17 07/14/17 18:59 06:59 18:59 Intake Total 1005 0 Output Total 3 Balance -3 1005 0 Weight (lbs) 47.627 kg 47.582 kg 47.174 kg Intake: Intake, IV Amount 1005 Potassium Chloride 10 meq 1005 In Sodium Chloride 0.45% 1,000 ml @ 100 mls/hr IV .Q10H3M [facility] Rx#: [id number] Oral 0 Output: Urine 3 Other: # Voids 2 # Bowel Movements 3 0 Active Medications: Current Medications Benztropine Mesylate (Cogentin) 1 mg PO HS [facility] Stop: 09/11/17 20:59 Last Admin: 07/13/17 20:03 Dose: Not Given Clonazepam (Klonopin) 2 mg PO HS [facility] Stop: 09/11/17 20:59 Docusate Sodium (Colace) 250 mg PO BID [facility] Stop: 09/11/17 08:59 Last Admin: 07/14/17 10:09 Dose: Not Given Potassium Chloride 10 meq/ (Sodium Chloride) 1,005 mls @ 100 mls/hr IV .Q10H3M [facility] Stop: 09/11/17 08:44 Last Admin: 07/14/17 06:31 Dose: Not Given Influenza Virus Vaccine (Fluarix) 0.5 ml IM .ONCE ONE Stop: 10/13/17 09:01 Mineral Oil (Mineral Oil 30 Ml) 30 ml PO BID PREET Stop: 07/19/17 16:59 Miscellaneous (Paliperidone [Invega]) 9 mg PO HS PREET Stop: 09/11/17 20:59 Last Admin: 07/13/17 20:04 Dose: Not Given Olanzapine (Zyprexa) 20 mg PO HS PREET PRN Reason: Protocol Stop: 09/11/17 20:59 Ondansetron HCl (Zofran) 4 mg IV Q6H PREET Stop: 09/12/17 05:46 Last Admin: 07/14/17 12:59 Dose: 4 mg Pantoprazole Sodium (Protonix) 40 mg IVP DAILY PREET Stop: 09/12/17 12:14 Last Admin: 07/14/17 12:59 Dose: 40 mg Ziprasidone (Geodon) 80 mg PO BID [facility] Stop: 09/11/17 08:59 General: Alert, No acute distress HEENT: Atraumatic, PERRLA Neck: Supple Cardiovascular: Regular rate Lungs: Clear to auscultation Abdomen: Bowel sounds Extremities: no Clubbing, no Cyanosis, no Edema
--- NOTE | 2017-07-14 17:43 | Consultation ---
DATE OF CONSULTATION: 07/14/2017 HISTORY OF PRESENT ILLNESS: This is a 42-year-old female admitted through ER because of severe abdominal discomfort for the last 3 days. The patient, however, is unable to communicate, just mental retardation and is blind. She lives in a [facility] facility. CT scan of the abdomen in the ER showed distended loops of bowel consistent with bowel obstruction versus ileus. LABORATORY STUDIES: CBC was normal. Chemistry, blood sugar slightly high at 126. PHYSICAL EXAMINATION: GENERAL: The patient moves about, unable to answer questions. ABDOMEN: However, appears to be soft with no tenderness or mass. RECOMMENDATIONS: Suggest small bowel series to rule out obstruction. We will follow with you. [facility]# [id number]
--- NOTE | 2017-07-15 16:30 | Discharge Summary ---
DATE OF DISCHARGE: 07/14/2017 PRELIMINARY DIAGNOSES: 1. Small-bowel obstruction versus ileus. 2. Abdominal pain. 3. Distended urinary bladder. 4. Severe scoliosis. 5. Severe mental retardation. DISCHARGE DIAGNOSES: 1. Small-bowel obstruction versus ileus. 2. Abdominal pain. 3. Distended urinary bladder. 4. Severe scoliosis. 5. Severe mental retardation. BRIEF HISTORY OF PRESENT ILLNESS: This is a 42-year-old female who presents to [facility] ER with complaints of severe abdominal discomfort noted at the assisted facility for the past 3 days. The patient has a history of mental retardation, blindness and currently at a assisted facility. The patient was noted to have increased abdominal distention noted by the nursing staff. She was subsequently sent to the ER for further evaluation. While in the ER, a CT of the abdomen revealed distended loops of bowel consistent with bowel obstruction versus ileus. The patient subsequently was admitted for further evaluation and treatment. Her initial lab work, white count was 6.6, hemoglobin 13.2, hematocrit 38.8, platelets 270. Sodium was 139, potassium 3.8, chloride 109, bicarbonate 24, BUN was 5, creatinine 0.8. HOSPITAL COURSE: The patient was seen and evaluated by GI, please see dictated report. A small bowel x-ray series was ordered, please see dictated report. The patient also was seen by General Surgery, please see dictated report. The patient was subsequently transferred to a contracted facility under stable condition for further evaluation and treatment. [facility]# [id number]
[2017-07-16] MEDS ORDERED: Influenza Vaccine 0.5 mL Syr IM ONE (09:00)
== END 2017-07-14 15:30 | disposition short-term general hospital (02) | DRG 247 ==
LOC: ER 19:41 → MSI 22:30
PROVIDERS: ADMIT Family Medicine; ATTEND Family Medicine
DX: K56.7 Ileus, unspecified (principal); F72 Severe intellectual disabilities; M41.9 Scoliosis, unspecified; K59.00 Constipation, unspecified; N32.89 Other specified disorders of bladder; Z79.899 Other long term (current) drug therapy; Z74.01 Bed confinement status
CPT/HCPCS: 36415-UA; 71010-TC; 74000-TC; 74250-TC; 80053-TC; 81001-TC; 81025-TC; 85025-TC; 93005; C9113; J2405; J3480; J7030

== ENCOUNTER 2018-11-22 09:17 | Emergency (ER) | payer MEDICAID ==
--- NOTE | 2018-11-22 10:20 | ED Physician Chart ---
ED Chief Complaint/HPI - Patient Information Date Seen:: 11/22/18 Time Seen:: 09:40 Chief Complaint:: Itching History of Present Illness:: onset x one day of eye scratching by pt and red eyes; pt is nonverbal and blind in both eyes; no report of trauma, LOC, ALOC, AMS, eye pain, H/As, S/T, neck pain, cough, C/P, SOB, Abd. Pain, A/N/V/D/C, fever, chills, or urinary s/s; pt' s last tetanus shot: < 5 years; UTD Allergies:: Allergies Allergy/AdvReac Type Severity Reaction Status Date / Time No Known Allergies Allergy Verified 07/12/17 20:14 Vitals:: Vital Signs - 8 hr 11/22/18 11/22/18 09:42 10:09 Temp 98.2 F HR 97 97 RR 18 18 BP 144/90 144/90 O2 Sat % 99 99 Historian:: Patient, Family Member, Friend Review:: Nurse's Note Reviewed, Old Chart Reviewed ED Review of Systems - Review of Systems General/Constitutional: No fever, No chills, No weight loss, No weakness, No diaphoresis, No edema, No loss of appetite Skin: No skin lesions, No rash, No bruising Head: No headache, No light-headedness Eyes: No loss of vision, No pain, No diplopia, Other (Blindness) ENT: No earache, No nasal drainage, No sore throat, No tinnitus Neck: No neck pain, No swelling, No thyromegaly, No stiffness, No mass noted Cardio Vascular: No chest pain, No palpitations, No PND, No orthopnea, No edema Pulmonary: No SOB, No cough, No sputum, No wheezing GI: No nausea, No vomiting, No diarrhea, No pain, No melena, No hematochezia, No constipation, No hematemesis G/U: No dysuria, No frequency, No hematuria, No nacturia Rubber Grinder: No vaginal discharge, No abnormal vaginal bleed, No contraction Musculoskeletal: No bone or joint pain, No back pain, No muscle pain Endocrine: No polyuria, No polydipsia Psychiatric: No prior psych history, No depression, No anxiety, No suicidal ideation, No homicidal ideation, No auditory hallucination, No visual hallucination Hematopoietic: No bruising, No lymphadenopathy Allergic/Immuno: No urticaria, No angioedema Neurological: No syncope, No focal symptoms, No weakness, No paresthesia, No headache, No seizure, No dizziness, Confusion, No vertigo ED Past Medical History - Past Medical History Obtainable: Yes Past Medical History: Dementia (Congenital Eye Blindness) Family History: HTN Social History: Non Smoker, No Alcohol, No Drug Use, Single, Care Facility Surgical History: None Psychiatricy History: Dementia Medication: Reviewed Family Medical History - Family Member Mother History Unknown: Yes ED Physical Exam - Physical Examination General/Constitutional: Awake, Well-developed, well-nourished, Alert, No distress, GCS 15, Non-toxic appearing, Ambulatory Head: Atraumatic Eyes: Lids, conjuctiva normal, PERRL, EOMI Other Eyes comments:: Va: Total Eye Blindness; not obtainable; + Bilateral Conjunctival Injection with scant white ocular discharge; no FBs; no abrasions; Fundi: unable to visualize; LLL: WNL; no yola-orbital cellulitis; no cellulitis Skin: Nl inspection, No rash, No skin lesions, No ecchymosis, Well hydrated, No lymphadenopathy ENMT: External ears, nose nl, TM canals nl, Nasal exam nl, Lips, teeth, gums nl , Oropharynx nl, Tonsils nl Neck: Nontender, Full ROM w/o pain, No JVD, No nuchal rigidity, No bruit, No mass, No stridor Other Neck comments:: supple; no meningeal signs; no cervical tenderness Respiratory: Nl effort/Exclusion, Clear to Auscultation, No Wheeze/Rhonchi/Rales Cardio Vascular: RRR, No murmur, gallop, rubs, NL S1 S2, Carotid/Femoral/Distal pulses equal bilaterally GI: No tenderness/rebounding/guarding, No organomegaly, No hernia, Normal BS's, Nondistended, No mass/bruits, No McBurney tenderness Other GI comments:: no pulsatile masses : No CVA tenderness Extremities: No tenderness or effusion, Full ROM, normal strength in all extremities, No edema, Normal digits & nails Neuro/Psych: Alert/oriented, DTR's symmetric, Normal sensory exam, Normal motor strength, Judgement/insight normal, Mood normal, Normal gait, No focal deficits Other Neuro/Psych comments:: no focal signs; pt is nonverbal Misc: Normal back, No paraspinal tenderness ED Septic Shock - . Is Septic Shock (SBP<90, OR Lactate>4 mmol\L) present?: No - <6hrs of presentation: Vital Signs: Vital Signs - 8 hr 11/22/18 11/22/18 09:42 10:09 Temp 98.2 F HR 97 97 RR 18 18 BP 144/90 144/90 O2 Sat % 99 99 ED Reassessment (Disposition) - Reassessment Reassessment:: pt is asymptomatic upon discharge Reassessment Condition:: Improved - Diagnosis Diagnosis:: Blindness; Hypertension; Conjunctivitis; Eye Itching; Red Eyes; MR - Aftercare/Follow up Instructions Aftercare/Follow-Up Instructions:: Counseled pt regarding lab results/diagnosis & need follow up, Refer to Discharge Instructions, Counseled pt & family regarding lab results/diagnosis & need follow up Medication Prescribed:: Rx: Tobramycin Ophthalmic Eye Drops: One Drop OU qid x 7 days; Naphcon A Ophthalmic Eye Drops: One Drop OU qid prn red, itching eyes; take all medications as prescribed; Eye Care Instructions - Patient Disposition Discharge/Transfer:: Home Condition at Disposition:: Stable, Improved (RTER prn if existing s/s reoccur and/or get worse and/or any other new s/s occur; Have Blood Pressure re-checked in one day by PMD; ACIs given for all above Dx; Refer to Meteorology Faculty Member/ Insurance Agents Supervisor JANKI; F/U with PMD in one day or prn; RTER prn if concerned)
== END 2018-11-22 10:15 | disposition short-term general hospital (02) ==
LOC: ER 09:17
DX: H54.7 Unspecified visual loss (principal); H10.9 Unspecified conjunctivitis; I10 Essential (primary) hypertension; F03.90 Unspecified dementia, unspecified severity, without behavioral disturbance, psychotic disturbance, mood disturbance, and anxiety
CPT/HCPCS: Z7502